=== PATIENT | female | born 1945 | race Caucasian/White ===

== ENCOUNTER → 2017-06-21 | Outpatient (CLI) | payer MEDICARE, BC ==
[~2017-06-21] MED LIST: ARIP2TAB3 PO; CALC-112 PO; CELE200C PO; CHOL500016 PO; DULO60CA6 PO; LETR2.5T18 PO; LISI1TAB3 PO; MULT1TAB6 PO; SOLI10TA2 PO; WARF-78 PO
--- NOTE | 2017-06-21 15:10 | KCIC ---
DATE: 06/21/2017 EXAM: MAMMO DAQUAN SCREENING BILATERAL HISTORY: Routine screening. History of right breast cancer status post mastectomy 2010 and reconstruction. COMPARISON: Previous mammogram from 2015 and 2014 This study was interpreted with the benefit of Computerized Aided Detection (CAD). FINDINGS: Breast Density: SCATTERED The breast parenchyma shows scattered fibroglandular densities. Breast parenchyma level B. The reconstructed right breast show no abnormality. The skin and nipples are within normal limits. No suspicious calcifications, spiculated mass or areas of architectural distortion. Benign appearing calcification seen in the left breast. IMPRESSION: No mammographic evidence of malignancy. Stable mammogram. BI-RADS CATEGORY: 2 BENIGN FINDING(S) RECOMMENDED FOLLOW-UP: 12M 12 MONTH FOLLOW-UP PQRS compliance statement: Patient information was entered into a reminder system with a target due date for the next mammogram. Mammography is a sensitive method for finding small breast cancers, but it does not detect them all and is not a substitute for careful clinical examination. A negative mammogram does not negate a clinically suspicious finding and should not result in delay in biopsying a clinically suspicious abnormality. "Our facility is accredited by the [employer] Mammography [employer]."
== END | disposition home or self-care (01) ==
LOC: KCIC MAMMO 09:57
PROVIDERS: ATTEND Family Medicine
DX: Z12.31 Encounter for screening mammogram for malignant neoplasm of breast (principal); Z85.3 Personal history of malignant neoplasm of breast
CPT/HCPCS: 77063; G0202; 77067

== ENCOUNTER → 2018-09-20 | Outpatient (CLI) | payer MEDICARE, BC ==
[~2018-09-20] MED LIST changes: -LETR2.5T18 PO; +LETROZOLE2.5 MG PO
--- NOTE | 2018-09-20 17:30 | KCIC ---
Bilateral digital screening mammograms with 3-D tomosynthesis: Reason for examination: Routine screening. History of right breast cancer with mastectomy and implant reconstruction. Comparison is made to previous studies dated 06/21/2017 and 06/23/2016. Bilateral mammograms in CC and oblique projections were obtained with 2-D imaging and 3-D tomosynthesis imaging on a Siemens Inspiration unit and reviewed on the workstation. Interpretation was made with the benefit of CAD. The reconstructed right breast shows no new masses or calcifications in the implant appears to be intact. The skin and nipple of the left breast show no abnormalities. No abnormal axillary lymph nodes are seen. The breast parenchyma shows scattered fatty and fibroglandular density. (Breast density: Category B.) There is suggestion of some focally increased nodularity however anteriorly in the upper outer quadrant probably around the 1:00 position. Further evaluation with ultrasound is recommended. There are no other dominant masses, suspicious calcifications or architectural distortion. Impression: Focally increased nodularity suggested anteriorly in the upper outer quadrant of the left breast probably around the 1:00 position. Recommend further evaluation with ultrasound. BI-RADS Category 0: Incomplete. Needs additional imaging evaluation. "Our facility is accredited by the [employer] Mammography [employer]." This patient's information has been entered into a reminder system for the patient to be notified with the results of her examination and a target date for the next mammogram. Electronically signed by: Evelia Laureano MD (09/20/2018 5:27 PM) [id number]
== END | disposition home or self-care (01) ==
LOC: KCIC MAMMO 13:45
PROVIDERS: ATTEND Family Medicine
DX: Z12.31 Encounter for screening mammogram for malignant neoplasm of breast (principal); Z85.3 Personal history of malignant neoplasm of breast
CPT/HCPCS: 77063; 77067

== ENCOUNTER → 2018-09-26 | Outpatient (CLI) | payer MEDICARE, BC ==
--- NOTE | 2018-09-26 13:32 | KCIC ---
Left breast ultrasound: Reason for examination: Increased nodularity on screening mammogram. Comparison is made to mammographic exam dated 09/20/2018. Ultrasound examination was performed with attention to the upper outer quadrant and the left axilla. In the 1:00 position 6 cm from the nipple, there is a focal area of fibrocystic change measuring 1.4 cm in greatest dimension which would appear to correspond with the area of mammographic concern. There also appears to be a small focus of fibrocystic change measuring 5.6 mm in greatest dimension at the 12:00 position 3 cm from the nipple. No suspicious lesions are seen. No abnormal appearing lymph nodes are seen in the left axilla. IMPRESSION: Fibrocystic changes at the 12:00 and 1:00 positions. No suspicious abnormality seen. Recommend ultrasound follow-up in 6 months. BI-RADS Category 3: Probably Benign. "Our facility is accredited by the [employer] Mammography [employer]." This patient's information has been entered into a reminder system for the patient to be notified with the results of her examination and a target date for the next mammogram. Electronically signed by: Evelia Laureano MD (09/26/2018 1:29 PM) [id number]
== END | disposition home or self-care (01) ==
LOC: KCIC US 12:44
PROVIDERS: ATTEND Family Medicine
DX: R92.8 Other abnormal and inconclusive findings on diagnostic imaging of breast (principal)
CPT/HCPCS: 76641

== ENCOUNTER → 2019-04-21 | Outpatient (CLI) | payer MEDICARE, BC ==
[~2019-04-21] MED LIST changes: +LISI1TAB23 PO; -LISI1TAB3 PO
--- NOTE | 2019-04-21 10:51 | KCIC ---
BREAST LEFT Clinical Indication: Six-month follow-up. Comparison: Bilateral mammogram 09/20/2018. Left breast ultrasound 09/26/2018. Technique: Real-time ultrasound imaging of the left breast is performed. Findings: At the 1:00 position 6 cm from the nipple there is stable fibrocystic change. At the 12:00 position 3 cm from the nipple there is a 7 mm focus of fibrocystic change that is stable. There are no abnormal axillary lymph nodes. IMPRESSION: 1. Stable fibrocystic changes at the 12:00 and 1:00 positions. Recommend patient return to routine mammogram screening. 2. BI-RADS category 2, benign findings. Electronically signed by: Damian Stephenson MD (04/21/2019 10:49 AM) [id number]
== END | disposition home or self-care (01) ==
LOC: KCIC MAMMO 09:14
PROVIDERS: ATTEND Family Medicine
DX: R92.8 Other abnormal and inconclusive findings on diagnostic imaging of breast (principal)
CPT/HCPCS: 76641

== ENCOUNTER → 2021-03-17 | Outpatient (CLI) | payer MEDICARE, BC ==
[~2021-03-17] MED LIST changes: -WARF-78 PO; +WARF5TAB2 PO
--- NOTE | 2021-03-17 16:39 | KCIC ---
Bilateral digital screening mammograms with 3-D tomosynthesis: Reason for examination: Routine screening. History of right breast cancer with mastectomy in implant reconstruction. Comparison is made to previous studies dated back to 05/21/2014. Bilateral mammograms in CC and oblique projections were obtained with 2-D imaging and 3-D tomosynthes is imaging on a Siemens Inspiration unit and reviewed on the workstation. Interpretation was made wit h the benefit of CAD. The reconstructed right breast shows a subpectoralis breast implant. No mass or calcifications are se en. The skin and nipple of the left breast show no acute abnormalities. No abnormal axillary lymph no luis are seen. The breast parenchyma shows scattered fatty and fibroglandular density. (Breast density : Category B.) There is a small nodule with calcifications located in the upper inner quadrant of the left breast anteriorly which is stable. There continues be some nodularity anterior superiorly in th e left breast seen best on oblique view which is stable and probably located in the upper outer quadr ant. There are no new dominant masses, suspicious calcifications or architectural distortion. Impression: No evidence of malignancy. Recommend routine screening. BI-RAD Category 2: Benign. "Our facility is accredited by the [employer] Mammography [employer]." This patient's information has been entered into a reminder system for the patient to be notified wit h the results of her examination and a target date for the next mammogram. Electronically signed by: Evelia Laureano MD (03/17/2021 4:36 PM) [id number]
== END ==
LOC: KCIC MAMMO 14:48
PROVIDERS: ATTEND Family Medicine
DX: Z12.31 Encounter for screening mammogram for malignant neoplasm of breast (principal)
CPT/HCPCS: 77063; 77067